=== PATIENT | male | born 1985 | race Caucasian/White ===

== ENCOUNTER 2017-10-17 11:33 | Emergency (ER) | payer OTHER, SELFPAY ==
--- NOTE | 2017-10-17 13:28 | ULT ---
LEFT LOWER EXTREMITY VENOUS DOPPLER: Date: 10/17/17 HISTORY: Left leg pain and swelling. COMPARISON: None. TECHNIQUE: Real-time Cuellar scale with color Doppler and spectral analysis of left lower extremity venous system p erformed, including the common femoral, femoral, proximal portion of greater saphenous and deep femor al veins, as well as popliteal and posterior tibial veins. FINDINGS: Normal flow, augmentation, and compression. There are mildly prominent left inguinal lymph nodes. IMPRESSION: 1. No deep venous thrombosis. 2. Mildly prominent left inguinal lymph nodes, which one of them has lost its normal fatty hilum. T his may be reactive. Follow-up should be obtained. POS: SRAVAN
[2017-10-17] MEDS ORDERED: Morphine 4 MG/ML Carpuject ONE ×2 (13:30→15:04)
[2017-10-17 13:50] LABS: #Basophils 0.1 thou/uL (0.0-0.2); #Eosinphils 0.4 thou/uL (0.0-0.7); #Lymphocytes 1.9 thou/uL (1.20-3.40); #Monocytes 0.8 thou/uL (0.11-0.59); #Neutrophils 8.5 thou/uL (1.40-6.50); %Basophils 0.9 % (0.0-1.0); %Eosinophils 3.2 % (0.0-10.0); %Lymphocytes 16.2 % (21.0-51.0); %Monocytes 6.5 % (0.0-10.0); Hematocrit 45.8 % (42.0-52.0); Mean Platelet Volume 7.7 fL (7.4-10.4); Red Blood Cell (RBC) Count 5.34 mill/uL (4.70-6.10); White Blood Cell (WBC) Count 11.6 thou/uL (4.8-10.8)
[2017-10-17 13:53] LABS: Anion Gap 17 mmol/L (10-20); BUN (Urea Nitrogen) 11 mg/dL (8.9-20.6); Calc. Creatinine Clearance 0 mL/min (70-130); Calcium 8.6 mg/dL (7.8-10.44); Carbon Dioxide 22 mmol/L (22-29); Chloride 105 mmol/L (98-107); Estimated GFR-MDRD Greater than 90
[2017-10-17] MEDS ORDERED: Ketorolac Tromethamine 30 MG/ML VIAL ONE (15:04)
[2017-10-17] MEDS ORDERED: Ondansetron HCl/PF 4 MG/2 ML Vial ONE (15:07)
--- NOTE | 2017-10-17 16:54 | MRI ---
MRI OF LEFT THIGH PERFORMED WITHOUT CONTRAST ENHANCEMENT: 10/17/17 HISTORY: Pain and swelling to the left leg. Pain is worse when sitting down. COMPARISON: An ultrasound examination done earlier today. Some slightly heterogeneous marrow signal change within the femoral shaft. There is no signs of any m arrow edema change that would suggest any type of osteomyelitis. The muscle planes appear fairly well preserved. There is motion artifact on all these images. I do no t see any signs of muscle edema. I do not see any fluid collection or evidence of air within the soft tissues. Some mild tendinosis of the hamstring tendon origin. IMPRESSION: Unremarkable MRI of the left thigh. POS: OFF
== END 2017-10-17 17:14 | disposition left against medical advice (07) ==
LOC: SCSER 11:33
DX: R59.0 Localized enlarged lymph nodes (principal); Z71.6 Tobacco abuse counseling; F17.210 Nicotine dependence, cigarettes, uncomplicated
CPT/HCPCS: 80048; 85025; 85652; 86140; 96374; 96375; 96376; 99406; J1885; J2270; J2405